=== PATIENT | female | born 1955 | race Caucasian/White ===

== ENCOUNTER 2020-09-25 07:24 | Emergency (ER) | payer MEDICARE ==
[~2020-09-25] VITALS: Ht 167.7 cm; Wt 77.7 kg
[2020-09-25] MEDS ORDERED: LIDOCAINE 1% INJ 20 ML 20 ML VIAL INJ STA (07:38)
[2020-09-25] MEDS ORDERED: TETANUS,DIPTH,PERTUSS P/F (BOOSTRIX) 0.5 ML VIAL IM ONE (07:45)
--- NOTE | 2020-09-25 07:54 | ED Upper Extremity ---
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 She was just getting ready to go through the door when she tripped. She hit her head against the wall and caught her hand and wrist against the wall and the drawer of jewelry that she was carrying. She states that she also has some pain to the kneecap on the right side. She has a small abrasion to her right forearm. She had previously fallen on the ice about 3 years ago and had surgery on her left wrist with hardware that remains in place. Today her pain is coming from the wrist and the base of the thumb up into her thumb and index finger primarily. She has some pain to her left forehead and scalp and was dazed after hitting her head but did not actually lose consciousness. She denies any change in vision. She has no nausea or vomiting. She has not taken anything for pain prior to arrival in the ED. She states her last tetanus was more than 5 years and she cannot remember for sure when it was that she had a tetanus shot. She reports avoiding Aleve or naproxen because it caused her to have hives but she can take other anti-inflammatories and has had Toradol shots in the past. She notes that she has had multiple fractures in the past and been told that she had weak bones. She has already had surgery on her left wrist and right ankle as well as her spine. 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 Onset: just prior to arrival Severity: moderate Pain/Injury Location: right forearm (Mild to the right forearm around where she has the deep abrasion); left wrist, left hand, left thumb, left 2nd finger; right other (Kneecap) Method of Injury: fell (Tripped as she was trying to go out the door while carrying a drawer of jewerly) Modifying Factors: Worse With Movement Allergies and Home Medications Allergies Coded Allergies: naproxen (Verified Allergy, Unknown, Hives, 09/25/20) Home Medications Tramadol HCl 50 Mg Tablet, 50 MG PO Q6H PRN for PAIN Prescribed by: COLBY BEAUCHAMP on 09/25/20 8719 Patient Home Medication List Home Medication List Reviewed: Yes Review of Systems Constitutional: No chills, No dizziness, No fever EENTM: No ear discharge, No ear pain, No blurred vision, No double vision, No vision loss, No epistaxis, No nose congestion Respiratory: no symptoms reported Cardiovascular: no symptoms reported Gastrointestinal: No nausea, No vomiting Genitourinary: no symptoms reported Musculoskeletal: see HPI Skin: see HPI Psychiatric/Neurological: See HPI, Headache (mild to left forehead and scalp); Denies Numbness, Denies Paresthesia Past Xleboth-Eovuby-Cdxpct Hx Past Med/Social Hx: Reviewed Nursing Past Med/Soc Hx Patient Social History Alcohol Use: Denies Use Smoking Status: Never a Smoker 2nd Hand Smoke Exposure: No Recent Hopitalizations: No Immunizations Up To Date Tetanus Booster (TDap): More than 5yrs Seasonal Allergies Seasonal Allergies: No Past Medical History Surgeries: Yes (Left wrist, Back, right ankle) Bladder Surgery, Hysterectomy, Orthopedic Respiratory: No Cardiac: No Neurological: No Genitourinary: No Gastrointestinal: No Musculoskeletal: No Endocrine: No HEENT: No Cancer: No Psychosocial: Yes Anxiety Integumentary: No Blood Disorders: No Physical Exam Vital Signs Vital Signs - First Documented 09/25/20 07:25 Temp 36.2 Pulse 68 Resp 16 B/P (MAP) 115/71 (86) Pulse Ox 99 O2 Delivery Room Air Capillary Refill : Height, Weight, BMI Height: '" Weight: lbs. oz. kg; BMI Method: General Appearance: WD/WN, no apparent distress HEENT: PERRL/EOMI, TMs normal; No photophobia; other (superficial abrasion to left forehead into scalp. mild tenderness to palpation in this area but no step off or crepitus. No CSF otorrhea or rhinorrhea. Negative Dorantes and Raccoon sig n) Neck: non-tender, full range of motion, supple, normal inspection Cardiovascular: normal peripheral pulses, regular rate, rhythm Respiratory: chest non-tender, lungs clear, normal breath sounds Shoulder: normal inspection, non-tender Elbow/Forearm: abrasions (deep abrasion to right proximal forearm) Wrist: No deformity; Yes limited ROM (left due to pain), Yes pain (left wrist at base of thumb) Hand: Left, limited ROM (left thumb and index finger limited ROM due to pain), soft tissue tenderness (left thumb, index finger and wrist) Neurologic/Tendon: normal sensation, normal tendon functions 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 No ecchymosis or crep itus. Procedures/Interventions Wound Location: Upper Extremities (right forearm) Wound Length (cm): 1.6 Wound's Depth, Shape: linear, sub Q Wound Explored: clean Other Closure Supply: Steri Strip 1/", Mastisol, Wound Adhesive Progress After obtaining verbal consent from the patient the wound was cleaned with surgical scrub soap of chlorhexidine and sterile water. Then using Mastisol around the wound to help secure Steri-Strips the wound edges were approximated and secured with tissue adhesive. Then the Steri-Strips were applied over the tissue adhesive. The wound edges were well approximated. Patient tolerated procedure well without any immediate complication. Counseled on follow-up and return precautions. Splinting and Joint Reduction : Location: Left hand and wrist Pre-Proc Neuro Vasc Exam: normal Post-Proc Neuro Vasc Exam: normal Progress Aluminum/foam splint was applied to the left hand and forearm. It was secured with the Goyo bandage. Patient was neurovascularly intact both pre and post procedure. Counseled to keep the splint on at all times until seen by hand specialist. Try to elevate above heart level to help with swelling and pain. Ice 20 to 30 minutes every few hours for pain and swelling. Rewrap the splint if having numbness in the fingers or losing circulation and fingers are turning purple or painful. Goyo wrap: Yes Splints: Noemi Wrist Progress/Results/Core Measures Results/Orders My Orders Orders - COLBY BEAUCHAMP MD Hand 3 View Left (09/25/20 07:36) Wrist 3 View Left (09/25/20 07:36) Knee 3 View Right (09/25/20 07:36) Dipht,Pertuss(Acell),Tet Adult (Boostrix (09/25/20 07:45) Ice: Apply To Affected Area (09/25/20 07:38) Suture Set At Bedside (09/25/20 07:38) Lidocaine 1% Inj 20 Ml (Xylocaine 1% Inj (09/25/20 07:38) Ed Ortho/Other Supplies Order (09/25/20 08:47) Orthopedic Equiment (09/25/20 08:47) Medications Given in ED Current Medications Medications Dose Ordered Sig/Meena Route Start Time Stop Time Status Last Admin Dose Admin Diphtheria/ Tetanus/Acell Pertussis 0.5 ml ONCE ONCE IM 09/25/20 07:45 09/25/20 07:46 DC 09/25/20 08:27 0.5 ML Vital Signs/I&O 09/25/20 09/25/20 07:25 09:07 Temp 36.2 36.2 Pulse 68 68 Resp 16 16 B/P (MAP) 115/71 (86) 115/71 (86) Pulse Ox 99 99 O2 Delivery Room Air Progress Progress Note #1: Progress Note Order xrays of the left hand/wrist, right knee. Ice for pain and swelling. Offered Toradol but pt wanted to wait until imaging done to see if she needed something stronger. Will update dTap. Clean and close wound on right forearm. Will attempt with steri strips and possibly some tissue adhesive since it is not very deep or wide but if not closing then will need to place a couple of stitches. Progress Note #2: Progress Note X-rays do demonstrate fracture of the second and third metacarpals of the left hand. They appear to be in good position and nondisplaced. She has no obvious fracture of the right knee or in the wrist. The hardware from previous surgery of the left distal radius appears intact and in place. After splinting the patient requested to continue to use Tylenol and ibuprofen for pain control. A prescription for few tramadol medication pills [facility] in case she needs something stronger for pain. Advised to call her hand surgeon as she plans to follow-up with the doctor that did her surgery on her wrist 3 years ago. Counseled to call and be seen within the next week and to keep the splint on clean and dry until then. Copies of the x-rays were sent on disc format so she could have those for the specialist. Deep abrasion to the right forearm was repaired with tissue adhesive and Steri- Strips. Tetanus was updated. Diagnostic Imaging Diagonstic Imaging: Xray Plain Films/CT/US/NM/MRI: hand Comments NAME: GRIFFIN CALDERON [facility] REC#: [id number] PT STATUS: REG ER : 1955 PHYSICIAN: COLBY BEAUCHAMP MD ADMIT DATE: 09/25/20/ER FS Draft Date of Exam:09/25/20 HAND 3 VIEW LEFT INDICATION: Wrist and hand pain post fall TECHNIQUE: Three views of the left hand. CORRELATION STUDY: None FINDINGS: Internal fixation with plate and screws over the distal volar aspect of the radius. Carpal bones appear to be intact as visualized. Degenerative change of the 1st carpometacarpal articulation. The relatively nondisplaced fractures at the base of the 2nd, 3rd and potentially 4th metacarpals. Alignment appears be near-anatomic. The phalanges are intact with mild degenerative changes through the interphalangeal joint. Soft tissues are unremarkable. IMPRESSION: 1. Relatively nondisplaced fractures at the base of the 2nd and 3rd and potentially 4th metacarpals. Dictated on workstation # [id number] Dict: 09/25/20 0803 Trans: 09/25/20 0806 RK [id number] Interpreted by: JEFFREY GONZALEZ DO Electronically signed by: Diagonstic Imaging: Xray Plain Films/CT/US/NM/MRI: knee Comments [facility], [place] NAME: GRIFFIN CALDERON [facility] REC#: [id number] PT STATUS: REG ER : 1955 PHYSICIAN: COLBY BEAUCHAMP MD ADMIT DATE: 09/25/20/ER FS Draft Date of Exam:09/25/20 KNEE 3 VIEW RIGHT INDICATION: Pain post fall today. TECHNIQUE: 3 views of the right knee CORRELATION STUDY: None FINDINGS: The joint spaces are maintained. The articular surfaces are smooth and preserved. There is no acute bony abnormality. Soft tissues are unremarkable. IMPRESSION: 1. Negative for acute bony abnormality of the knee. Dictated on workstation # [id number] Dict: 09/25/20 0804 Trans: 09/25/20 0805 DO [id number] Interpreted by: JEFFREY GONZALEZ DO Electronically signed by: April Imaging: Xray Plain Films/CT/US/NM/MRI: other (wrist) Comments [facility], [place] NAME: GRIFFIN CALDERON [facility] REC#: [id number] PT STATUS: REG ER : 1955 PHYSICIAN: COLBY BEAUCHAMP MD ADMIT DATE: 09/25/20/ER FS Draft Date of Exam:09/25/20 WRIST 3 VIEW LEFT INDICATION: Pain, fall Post surgical change to the distal radius present. Hardware appeared intact. No articular offset. An acute appearing fracture of the base of the 2nd metacarpal is present. Proximal and distal carpal rows themselves intact. IMPRESSION: Fracture at the base of the 2nd metacarpal. The postsurgical distal radius intact. Dictated on workstation # [id number] Dict: 09/25/20 0759 Trans: 09/25/20 0804 RK [id number] Interpreted by: KUNAL ISRAEL Electronically signed by: Departure Impression Primary Impression: Closed nondisp fracture of base of second metacarpal bone of left hand Qualified Codes: S62.341A - Nondisplaced fracture of base of second metacarpal bone, left hand, initial encounter for closed fracture Additional Impressions: Closed nondisplaced fracture of third metacarpal bone of left hand Qualified Codes: S62.343A - Nondisplaced fracture of base of third metacarpal bone, left hand, initial encounter for closed fracture Abrasion of right forearm, initial encounter Contusion of right knee, initial encounter Fall Qualified Codes: W19.XXXA - Unspecified fall, initial encounter Abrasion of scalp, initial encounter Closed head injury without loss of consciousness Qualified Codes: S09.90XA - Unspecified injury of head, initial encounter Disposition: 01 HOME, SELF-CARE Condition: Stable Departure-Patient Inst. Decision time for Depature: 08:54 Referrals: RAMEZ ALLAN APRN (PCP) Primary Care Physician [facility] (Family) Primary Care Physician Patient Instructions: Abrasions ED, Hand Fracture ED, Laceration Repair With Glue ED, Minor Head Injury, Adult ED, Splint Care ED, Minor Contusion ED Add. Discharge Instructions: Keep splint on your hand at all times until seen by Hand Orthopedics doctor. Call your doctor that did the surgery for your wrist from previous fall and they should be able to follow up with you for this. If you can not get in with that doctor or someone from his group this week then you can call your primary provider to get referral to another hand surgeon If the goyo bandage is too tight you can have your family loosen and then re-wrap the splint. Ice 20-30 minutes every few hours to help with pain and swelling. Acetaminophen and Ibuprofen for pain. For severe pain you could take the Tramadol. Stay well hydrated and get plenty of rest. You may notice other muscles to get sore and inflamed. All discharge instructions reviewed with patient and/or family. Voiced understanding. Scripts Tramadol HCl (Tramadol HCl) 50 Mg Tablet 50 MG PO Q6H PRN for PAIN for 3 Days, #12 TAB 0 Refills Prov: COLBY BEAUCHAMP MD 09/25/20 Images Extremities-Lower 1 - Contusion (Mild erythema to the patella area for contusion), Tenderness (Mild tenderness and small area of erythema for contusion over the patella. Negative anterior posterior drawer sign as well as no laxity with varus or valgus stress) Extremities-Upper 1 - 1.6 cm x 4 mm deep abrasion to the right proximal forearm 1 - Tenderness (Pain to the left hand primarily at the base of the thumb and going into the index finger.) Head/Face 1 - Abrasion (Mild superficial abrasion and contusion to the left forehead and scalp), Contusion, Swelling (Mild swelling to area of abrasion and contusion. There is no step-off or crepitus noted), Tenderness COLBY BEAUCHAMP MD September 25, 2020 07:54
--- NOTE | 2020-09-25 08:05 | Diagnostic Imaging Report ---
INDICATION: Pain, fall Post surgical change to the distal radius present. Hardware appeared intact. No articular offset. An acute appearing fracture of the base of the 2nd metacarpal is present. Proximal and distal carpal rows themselves intact. IMPRESSION: Fracture at the base of the 2nd metacarpal. The postsurgical distal radius intact. Dictated by: Dictated on workstation # [id number]
--- NOTE | 2020-09-25 08:05 | Diagnostic Imaging Report ---
INDICATION: Pain post fall today. TECHNIQUE: 3 views of the right knee CORRELATION STUDY: None FINDINGS: The joint spaces are maintained. The articular surfaces are smooth and preserved. There is no acute bony abnormality. Soft tissues are unremarkable. IMPRESSION: 1. Negative for acute bony abnormality of the knee. Dictated by: Dictated on workstation # [id number]
--- NOTE | 2020-09-25 08:06 | Diagnostic Imaging Report ---
INDICATION: Wrist and hand pain post fall TECHNIQUE: Three views of the left hand. CORRELATION STUDY: None FINDINGS: Internal fixation with plate and screws over the distal volar aspect of the radius. Carpal bones appear to be intact as visualized. Degenerative change of the 1st carpometacarpal articulation. The relatively nondisplaced fractures at the base of the 2nd, 3rd and potentially 4th metacarpals. Alignment appears be near-anatomic. The phalanges are intact with mild degenerative changes through the interphalangeal joint. Soft tissues are unremarkable. IMPRESSION: 1. Relatively nondisplaced fractures at the base of the 2nd and 3rd and potentially 4th metacarpals. Dictated by: Dictated on workstation # [id number]
[2020-09-25] MEDS ORDERED: TRM50T PO (08:53)
[2020-09-25 09:07] VITALS: BP 115/71
== END 2020-09-25 09:03 | disposition home or self-care (01) ==
LOC: ER FS 07:26
DX: S09.90XA Unspecified injury of head, initial encounter (principal); S62.341A Nondisplaced fracture of base of second metacarpal bone, left hand, initial encounter for closed fracture; S62.343A Nondisplaced fracture of base of third metacarpal bone, left hand, initial encounter for closed fracture; S80.01XA Contusion of right knee, initial encounter; S50.811A Abrasion of right forearm, initial encounter; S00.01XA Abrasion of scalp, initial encounter; Z87.81 Personal history of (healed) traumatic fracture; Z23 Encounter for immunization; W01.198A Fall on same level from slipping, tripping and stumbling with subsequent striking against other object, initial encounter; Y92.512 Supermarket, store or market as the place of occurrence of the external cause
CPT/HCPCS: 12001; 29125; 73110; 73130; 73562; 90715